=== PATIENT | male | born 1945 | race Caucasian/White ===

== ENCOUNTER 2017-04-10 06:33 | Outpatient (CLI) | payer MEDICARE, BC ==
[~2017-04-10] VITALS: Ht 175.3 cm; Wt 100.0 kg
[2017-04-10 07:26] VITALS: BP 93/60; Ht 175.3 cm; Wt 100.0 kg
[2017-04-10] MEDS ORDERED: AMBIEN10 MG PO (07:39)
[2017-04-10] MEDS ORDERED: ZYLOPRIM100 MG PO (07:39)
[2017-04-10] MEDS ORDERED: BENADRYL 2% CRE30 GM TOPICAL (07:40)
[2017-04-10] MEDS ORDERED: COLACE100 MG PO (07:40)
[2017-04-10] MEDS ORDERED: LANOXIN125 MCG PO (07:41)
[2017-04-10] MEDS ORDERED: COUMADIN1 MG PO (07:41)
[2017-04-10] MEDS ORDERED: FLUTICASONE PRO16 GM NASAL (07:42)
[2017-04-10] MEDS ORDERED: NORVASC5 MG PO (07:43)
[2017-04-10] MEDS ORDERED: MILK OF MAGNESI30 ML PO (07:43)
[2017-04-10] MEDS ORDERED: OMEPRAZOLE20 M1 PO (07:44)
[2017-04-10] MEDS ORDERED: K-DUR20 MEQ PO (07:44)
[2017-04-10] MEDS ORDERED: ACETAMINOPHEN325 MG PO (07:45)
[2017-04-10] MEDS ORDERED: VITAMIN B-1100 M1 PO (07:45)
[2017-04-10] MEDS ORDERED: ZOLOFT25 MG PO (07:46)
[2017-04-10] MEDS ORDERED: UNISOM SLEEP AI25 MG PO (07:46)
[2017-04-10 07:58] LABS: ANION GAP 14.1 mmol/L (8-16); CARBON DIOXIDE 23.1 mmol/L (21.0-32.0); CREATININE - SERUM 1.7 mg/dL (0.6-1.3); POTASSIUM - SERUM 4.2 mmol/L (3.5-5.1)
[2017-04-10 08:07] LABS: APTT 51.6 SECONDS (22.8-39.4); BASOPHILS 0.4 % (0-2); EOSINOPHILS 0 % (0-7); INR 2.13 (0.85-1.17); LYMPHOCYTES 34.2 % (15-50); MCH 28.8 pg (26.0-34.0); MCHC 33.9 g/dL (31.0-37.0); MCV 84.9 fL (80.0-100.0); MEAN PLATELET VOLUME 9.7 fL (7.4-10.4); MONOCYTES 6.3 % (2-11); NEUTROPHILS 59.1 % (40-80); PLATELET COUNT 302 10x3/uL (130-400); PROTIME 23.2 SECONDS (11.6-15.0); RBC 2.12 10x6/uL (4.20-6.10); RDW 17.4 % (11.5-14.5); WBC 4.5 10x3/uL (4.8-10.8)
[2017-04-10 08:12] LABS: HEMOGLOBIN 6.1 g/dL (13.5-17.5)
[2017-04-10 12:56] LABS: BASOPHILS 0.2 % (0-2); EOSINOPHILS 0 % (0-7); HEMATOCRIT 20.6 % (42.0-54.0); LYMPHOCYTES 74.5 % (15-50); MCH 29.3 pg (26.0-34.0); MEAN PLATELET VOLUME 9.7 fL (7.4-10.4); MONOCYTES 7.2 % (2-11); NEUTROPHILS 17.1 % (40-80); RBC 2.32 10x6/uL (4.20-6.10); RDW 17.9 % (11.5-14.5)
[2017-04-10 13:07] LABS: HEMOGLOBIN 6.8 g/dL (13.5-17.5); MCV 88.8 fL (80.0-100.0); PLATELET COUNT 41 10x3/uL (130-400); WBC 6.1 10x3/uL (4.8-10.8)
[2017-04-10 13:28] LABS: ALBUMIN 1.7 g/dL (3.4-5.0); ALKALINE PHOSPHATASE 117 U/L (46-116); ALT (SGPT) 18 U/L (10-68); BILIRUBIN - TOTAL 0.46 mg/dL (0.2-1.3); CALC OSMOLALITY 271 mosm/kg (275-300); CALCIUM 7.7 mg/dL (8.5-10.1); CARBON DIOXIDE 21.3 mmol/L (21.0-32.0); CHLORIDE - SERUM 103 mmol/L (98-107); CKMB 1.7 U/L (0.0-3.6); CREATINE KINASE 84 UL (21-232); CREATININE - SERUM 1.8 mg/dL (0.6-1.3); GLUCOSE 78 mg/dL (74-106); POTASSIUM - SERUM 4.5 mmol/L (3.5-5.1); PROTEIN - SERUM 5.3 g/dL (6.4-8.2); SODIUM 135 mmol/L (136-145); UREA NITROGEN 21 mg/dL (7-18); eGFR NON AFRICAN AMERICAN 40 mL/min (90-120)
[2017-04-10 13:34] LABS: TROPONIN-I < 0.017 ng/mL (0.000-0.060)
== END 2017-04-10 13:02 ==
LOC: D.OPS 06:33 → D.CT 09:00 → D.OPS 09:00
PROVIDERS: Family Medicine; Radiology Diagnostic Radiology
DX: J90 Pleural effusion, not elsewhere classified (principal); I46.9 Cardiac arrest, cause unspecified; Z01.812 Encounter for preprocedural laboratory examination; D64.9 Anemia, unspecified; I50.32 Chronic diastolic (congestive) heart failure; Z53.9 Procedure and treatment not carried out, unspecified reason